=== PATIENT | female | born 1995 | race American Indian/Alaskan Native ===

== ENCOUNTER 2020-08-10 22:23 | Emergency (ER) | payer SELFPAY ==
[2020-08-11] MEDS ORDERED: IBUPROFEN 600 MG TAB PO ONE ×2 (00:03→03:30)
[2020-08-11] MEDS ORDERED: ACETAMINOPHEN 500 MG TAB PO ONE ×2 (00:03→03:30)
[2020-08-11] MEDS ORDERED: SODIUM CHLORIDE 0.9% 1000 ML 1,000 ML IV ONE ×2 (00:04→03:30)
[2020-08-11 00:38] LABS: Basophils % (Auto) 0.8 % (0.0-1.8); Eosinophils # (Auto) 0.1 K/mm3 (0.0-0.4); Eosinophils % (Auto) 2.3 % (0.0-4.3); Hematocrit 39.5 % (30.3-42.9); Lymphocytes # (Auto) 2.5 K/mm3 (1.2-5.4); Lymphocytes % (Auto) 43.7 % (13.4-35.0); Mean Corpuscular HGB Conc 33 % (30-34); Mean Corpuscular Volume 85 fl (79-97); Monocytes # (Auto) 0.4 K/mm3 (0.0-0.8); Monocytes % (Auto) 6.8 % (0.0-7.3); Platelet Count 195 K/mm3 (140-440); Red Blood Count 4.62 M/mm3 (3.65-5.03); Red Cell Distribution Width 13.7 % (13.2-15.2)
--- NOTE | 2020-08-11 00:39 | XRay Report ---
CHEST 1 VIEW 08/11/2020 12:22 AM INDICATION / CLINICAL INFORMATION: Cough and fever for 3 days. Headache for one week. COMPARISON: None available. FINDINGS: SUPPORT DEVICES: None. HEART / MEDIASTINUM: The heart size and pulmonary vasculature are normal. LUNGS / PLEURA: No significant pulmonary or pleural abnormality. No pneumothorax. ADDITIONAL FINDINGS: No significant additional findings. IMPRESSION: No acute findings. There is no evidence of pneumonia. Signer Name: Petey Gabriel MD Signed: 08/11/2020 12:34 AM Workstation Name: [id number]
[2020-08-11 02:15] LABS: Albumin 4.2 g/dL (3.9-5); Calcium 9.4 mg/dL (8.4-10.2)
--- NOTE | 2020-08-11 06:54 | Emergency Department Report ---
ED General Adult HPI - General Chief complaint: Headache Stated complaint: HEADACHE/FEVER Source: patient Mode of arrival: Ambulatory Limitations: No Limitations - History of Present Illness Initial comments: Patient is a A1 25-year-old -Gren[place] female with no past medical history presents to the ED with complaint of acute onset persistent diffuse body aches and pains, frontal and sinus pressure and headache and sore throat for the last 1 week. Patient also states that she developed persistent fever, chills and lack of appetite with generalized weakness for the last 2 days. Patient states that she has been taking ukfy-ofk-[id number] medications with no relief. Patient states that no one else at home is had similar symptoms. Patient denies dizziness, syncope, chest pain or shortness of breath, nausea and vomiting, abdominal pain, diarrhea, change in vision, vaginal bleeding, dysuria, urinary frequency and urgency or vaginal discharge. MD Complaint: Frontal sinus headache; diffuse body aches and pain; fever and chills; -: Sudden, week(s) (1) Location: head, face, back Radiation: non-radiation Severity scale (0 -10): 7 Quality: aching, sharp Consistency: constant Improves with: none Worsens with: none Associated Symptoms: denies other symptoms, cough, fever/chills, headaches, loss of appetite, malaise. denies: confusion, chest pain, diaphoresis, nausea/vomiting, rash, seizure, shortness of breath, syncope, weakness Treatments Prior to Arrival: none - Related Data Home Medications Medication Instructions Recorded Confirmed Last Taken metroNIDAZOLE [Flagyl] 500 mg PO BID 03/03/13 03/03/13 03/02/13 21:00 Previous Rx's Medication Instructions Recorded Last Taken Type Nitrofurantoin [place]/M-Cryst 100 mg PO Q12HR #20 capsule 03/03/13 Unknown Rx [Macrobid] Ondansetron [Zofran Odt] 4 mg PO Q6H PRN #12 tab.rapdis 03/03/13 Unknown Rx Acetaminophen [Tylenol] 500 mg PO Q6HR PRN #30 tablet 08/11/20 Unknown Rx Amoxicillin/Potassium Clav 1 each PO Q12H #20 tablet 08/11/20 Unknown Rx [Augmentin 875-125 Tablet] Ondansetron [Zofran Odt] 4 mg PO Q8HR PRN #15 tab.rapdis 08/11/20 Unknown Rx Allergies Allergy/AdvReac Type Severity Reaction Status Date / Time No Known Allergies Allergy Verified 08/11/20 03:23 ED Review of Systems ROS: Stated complaint: HEADACHE/FEVER Other details as noted in HPI Constitutional: chills, fever, malaise, weakness Eyes: denies: eye pain, eye discharge, vision change ENT: congestion, other (Frontal sinus pressure and headache). denies: ear pain, throat pain Respiratory: cough. denies: shortness of breath, wheezing Cardiovascular: denies: chest pain, palpitations Endocrine: no symptoms reported Gastrointestinal: denies: abdominal pain, nausea, vomiting, diarrhea Genitourinary: denies: urgency, dysuria, discharge Musculoskeletal: denies: back pain, joint swelling, arthralgia Skin: denies: rash, lesions Neurological: headache. denies: weakness, paresthesias Psychiatric: denies: anxiety, depression Hematological/Lymphatic: denies: easy bleeding, easy bruising ED Past Medical Hx - Past Medical History Previous Medical History?: No - Surgical History Past Surgical History?: No - Social History Smoking Status: Never Smoker Substance Use Type: None - Medications Home Medications: Home Medications Medication Instructions Recorded Confirmed Last Taken Type Nitrofurantoin [place]/M-Cryst 100 mg PO Q12HR #20 capsule 03/03/13 Unknown Rx [Macrobid] Ondansetron [Zofran Odt] 4 mg PO Q6H PRN #12 tab.rapdis 03/03/13 Unknown Rx metroNIDAZOLE [Flagyl] 500 mg PO BID 03/03/13 03/03/13 03/02/13 21:00 History Acetaminophen [Tylenol] 500 mg PO Q6HR PRN #30 tablet 08/11/20 Unknown Rx Amoxicillin/Potassium Clav 1 each PO Q12H #20 tablet 08/11/20 Unknown Rx [Augmentin 875-125 Tablet] Ondansetron [Zofran Odt] 4 mg PO Q8HR PRN #15 tab.rapdis 08/11/20 Unknown Rx ED Physical Exam - General Limitations: No Limitations General appearance: alert, in no apparent distress - Head Head exam: Present: atraumatic, normocephalic, normal inspection - Eye Eye exam: Present: normal appearance, PERRL, EOMI Pupils: Present: normal accommodation - ENT ENT exam: Present: normal orophraynx, mucous membranes moist, TM's normal bilaterally, normal external ear exam, other (Palpable severe frontal and maxillary sinus tenderness) - Neck Neck exam: Present: normal inspection, full ROM. Absent: tenderness, lymphadenopathy - Respiratory Respiratory exam: Present: normal lung sounds bilaterally. Absent: respiratory distress, wheezes, rales, stridor, chest wall tenderness, accessory muscle use, prolonged expiratory - Cardiovascular Cardiovascular Exam: Present: normal rhythm, tachycardia, normal heart sounds. Absent: systolic murmur, diastolic murmur, rubs, gallop - GI/Abdominal GI/Abdominal exam: Present: soft, normal bowel sounds. Absent: distended, tenderness, guarding, rebound, hyperactive bowel sounds, organomegaly - Extremities Exam Extremities exam: Present: normal inspection, full ROM, normal capillary refill - Back Exam Back exam: Present: normal inspection, full ROM. Absent: tenderness, CVA tenderness (R), CVA tenderness (L), muscle spasm, paraspinal tenderness, vertebral tenderness - Neurological Exam Neurological exam: Present: alert, oriented X3, CN II-XII intact, normal gait, reflexes normal - Psychiatric Psychiatric exam: Present: normal affect, normal mood - Skin Skin exam: Present: warm, dry, intact, normal color. Absent: rash ED Course Vital Signs 08/10/20 23:55 Temperature 101.7 F H Pulse Rate 120 H Respiratory 16 Rate Blood Pressure 148/84 O2 Sat by Pulse 99 Oximetry ED Medical Decision Making - Lab Data Result diagrams: 08/11/20 00:12 08/11/20 00:12 - Radiology Data Radiology results: report reviewed, image reviewed [facility] [address] [place] [address] XRay Report Signed Patient: MAYRA IBARRA MR#: [id number] 55 : 1995 Acct:[id number] Age/Sex: 25 / F ADM Date: 08/10/20 Loc: ED Attending Dr: Ordering Physician: OMR ZHU Date of Service: 08/11/20 Procedure(s): XR chest 1V ap Accession Number(s): [id number] cc: MOR ZHU Fluoro Time In Minutes: CHEST 1 VIEW 08/11/2020 12:22 AM INDICATION / CLINICAL INFORMATION: Cough and fever for 3 days. Headache for one week. COMPARISON: None available. FINDINGS: SUPPORT DEVICES: None. HEART / MEDIASTINUM: The heart size and pulmonary vasculature are normal. LUNGS / PLEURA: No significant pulmonary or pleural abnormality. No pneumothorax. ADDITIONAL FINDINGS: No significant additional findings. IMPRESSION: No acute findings. There is no evidence of pneumonia. Signer Name: Petey Gabriel MD Signed: 08/11/2020 12:34 AM Workstation Name: [id number] Transcribed By: RT Dictated By: Petey Gabriel MD Electronically Authenticated By: Petey Gabriel MD Signed Date/Time: 08/11/2033 DD/ TD/TT: - Medical Decision Making This is a A1 25-year-old -[place] female with no past medical history presents to the ED with complaint of acute onset persistent diffuse body aches and pains, frontal and sinus pressure and headache and sore throat for the last 1 week. Patient also states that she developed persistent fever, chills and lack of appetite with generalized weakness for the last 2 days. Patient states that she has been taking jyvy-xyc-sogumxl medications with no relief. Patient states that no one else at home is had similar symptoms. In the ED, patient is alert and oriented x3 and is not in any distress but febrile and tach ycardic in triage. Patient was treated for fever in the ED and chest x-ray showed no acute cardiopulmonary abnormalities or pneumonitis. Lab test results were reviewed and are all nonactionable except for slightly elevated creatinine of 1.3. - Differential Diagnosis Strep pharyngitis; sinusitis; URI; pneumonia; COVID-19; UTI Critical care attestation.: If time is entered above; I have spent that time in minutes in the direct care of this critically ill patient, excluding procedure time. ED Disposition Clinical Impression: Acute non-recurrent frontal sinusitis, Fever and chills, Flu-like symptoms Disposition: DC-01 TO HOME OR SELFCARE Is pt being admited?: No Does the pt Need Aspirin: No Condition: Stable Instructions: Sinusitis, Adult, Ucpc-[id number], Upper Respiratory Infection, Adult, Kcsu-[id number], Fever, Adult, Akrq-xn-Cmbx Additional Instructions: All lab test results were reviewed and are all nonactionable except for slightly elevated creatinine of 1.3, consistent with dehydration. Chest x-ray showed no acute cardiopulmonary abnormalities or pneumonitis. Therefore your symptoms are likely due to upper respiratory infection, sinusitis, or a viral syndrome. Therefore take medications with food, drink plenty of fluids and follow-up with your primary care physician in 5 to 7 days for reevaluation. Return to the ED immediately if symptoms get worse. Prescriptions: Acetaminophen [Tylenol] 500 mg PO Q6HR PRN #30 tablet PRN Reason: Fever >101 Amoxicillin/Potassium Clav [Augmentin 875-125 Tablet] 1 each PO Q12H #20 tablet Ondansetron [Zofran Odt] 4 mg PO Q8HR PRN #15 tab.rapdis PRN Reason: Nausea Referrals: [facility] [Provider Group] - 7-10 days Time of Disposition: 06:57 Print Language: ROMANIAN
[2020-08-11 07:25] LABS: Bilirubin,Urine NEG (Negative); Blood,Urine NEG (Negative); Color,Urine Yellow (Yellow); Mucus,Urine FEW /HPF; Protein,Urine <15 mg/dL mg/dL (Negative); RBC,Urine < 1.0 /HPF (0.0-6.0); Urobilinogen,Urine < 2.0 mg/dL (<2.0); WBC,Urine < 1.0 /HPF (0.0-6.0)
[2020-08-11 08:16] VITALS: BP 134/68
== END 2020-08-11 08:15 | disposition home or self-care (01) ==
LOC: ED 22:23
DX: J01.10 Acute frontal sinusitis, unspecified (principal); R50.9 Fever, unspecified; Z79.899 Other long term (current) drug therapy
CPT/HCPCS: 36415; 71045; 80053; 81001; 84703; 85025; 96360; 99284; J7030

== ENCOUNTER 2020-08-18 08:49 | Emergency (ER) | payer OTHER ==
[2020-08-18 09:04] VITALS: BP 136/74
--- NOTE | 2020-08-18 09:08 | Emergency Department Report ---
ED General Adult HPI - General Chief complaint: Allergic Reaction Stated complaint: ALLERGIC REACTION Time Seen by Provider: 08/18/20 08:58 Source: patient Mode of arrival: Ambulatory Limitations: No Limitations - History of Present Illness Initial comments: 25-year-old -[place] female patient presents with complaints of itchy rash to the legs and arms and back starting yesterday. She denies any pain, fever/chills/sweats, recent hotel stays, or contact with others with the same symptoms. She tried Benadryl this morning, however it did not help with her symptoms. No recent changes in her products per patient. She does report drinking a new TV 1 hour prior to the start of the rash. Patient also denies any dysphagia, chest pain, or shortness of breath. No other past medical history per patient. - Related Data Home Medications Medication Instructions Recorded Confirmed Last Taken metroNIDAZOLE [Flagyl] 500 mg PO BID 03/03/13 03/03/13 03/02/13 21:00 Previous Rx's Medication Instructions Recorded Last Taken Type Nitrofurantoin [place]/M-Cryst 100 mg PO Q12HR #20 capsule 03/03/13 Unknown Rx [Macrobid] Ondansetron [Zofran Odt] 4 mg PO Q6H PRN #12 tab.rapdis 03/03/13 Unknown Rx Acetaminophen [Tylenol] 500 mg PO Q6HR PRN #30 tablet 08/11/20 Unknown Rx Amoxicillin/Potassium Clav 1 each PO Q12H #20 tablet 08/11/20 Unknown Rx [Augmentin 875-125 Tablet] Ondansetron [Zofran Odt] 4 mg PO Q8HR PRN #15 tab.rapdis 08/11/20 Unknown Rx Loratadine 10 mg PO QDAY 7 Days #7 tablet 08/18/20 Unknown Rx Triamcinolone Acetonide 60 ml TP TID PRN 7 Days #1 lotion 08/18/20 Unknown Rx [Triamcinolone 0.1% LOTION] predniSONE [Deltasone] 20 mg PO TID 3 Days #9 tab 08/18/20 Unknown Rx Allergies Allergy/AdvReac Type Severity Reaction Status Date / Time No Known Allergies Allergy Verified 08/18/20 08:59 ED Review of Systems ROS: Stated complaint: ALLERGIC REACTION Other details as noted in HPI Constitutional: denies: chills, diaphoresis, fever, malaise, weakness ENT: as per HPI Skin: as per HPI Hematological/Lymphatic: denies: swollen glands ED Past Medical Hx - Past Medical History Previous Medical History?: No - Surgical History Past Surgical History?: No - Social History Smoking Status: Never Smoker Substance Use Type: None - Medications Home Medications: Home Medications Medication Instructions Recorded Confirmed Last Taken Type Nitrofurantoin [place]/M-Cryst 100 mg PO Q12HR #20 capsule 03/03/13 Unknown Rx [Macrobid] Ondansetron [Zofran Odt] 4 mg PO Q6H PRN #12 tab.rapdis 03/03/13 Unknown Rx metroNIDAZOLE [Flagyl] 500 mg PO BID 03/03/13 03/03/13 03/02/13 21:00 History Acetaminophen [Tylenol] 500 mg PO Q6HR PRN #30 tablet 08/11/20 Unknown Rx Amoxicillin/Potassium Clav 1 each PO Q12H #20 tablet 08/11/20 Unknown Rx [Augmentin 875-125 Tablet] Ondansetron [Zofran Odt] 4 mg PO Q8HR PRN #15 tab.rapdis 08/11/20 Unknown Rx Loratadine 10 mg PO QDAY 7 Days #7 tablet 08/18/20 Unknown Rx Triamcinolone Acetonide 60 ml TP TID PRN 7 Days #1 lotion 08/18/20 Unknown Rx [Triamcinolone 0.1% LOTION] predniSONE [Deltasone] 20 mg PO TID 3 Days #9 tab 08/18/20 Unknown Rx ED Physical Exam - General Limitations: No Limitations General appearance: alert, in no apparent distress, obese - Head Head exam: Present: atraumatic, normocephalic - Eye Eye exam: Present: normal appearance. Absent: scleral icterus - Respiratory Respiratory exam: Present: normal lung sounds bilaterally. Absent: respiratory distress - Cardiovascular Cardiovascular Exam: Present: regular rate, normal rhythm - Neurological Exam Neurological exam: Present: alert, oriented X3, normal gait - Psychiatric Psychiatric exam: Present: normal affect, normal mood - Skin Skin exam: Present: warm, dry, intact, normal color, rash (Scattered papular rash noted to the back, bilateral upper arms, and lower legs without significant erythema and no tenderness to palpation; no drainage noted) ED Course Vital Signs 08/18/20 08:59 Temperature 98.7 F Pulse Rate 98 H Respiratory 16 Rate Blood Pressure 136/74 O2 Sat by Pulse 100 Oximetry ED Medical Decision Making - Medical Decision Making 25-year-old -[place] female patient presents with complaints of itchy rash to the legs and arms and back starting yesterday. She denies any pain, fever/chills/sweats, recent hotel stays, or contact with others with the same symptoms. She tried Benadryl this morning, however it did not help with her symptoms. No recent changes in her products per patient. She does report drinking a new TV 1 hour prior to the start of the rash. Patient also denies any dysphagia, chest pain, or shortness of breath. No other past medical history per patient. We will treat for allergic dermatitis with antihistamines, triamcinolone, and prednisone. Recommend follow-up primary care in 3 to 5 days. Discussed signs and symptoms that should prompt immediate return to the emergency department in detail with patient who verbalizes understanding. She is well-appearing, her vitals are within normal limits, she is stable for discharge home. Critical care attestation.: If time is entered above; I have spent that time in minutes in the direct care of this critically ill patient, excluding procedure time. ED Disposition Clinical Impression: Rash and nonspecific skin eruption Disposition: DC-01 TO HOME OR SELFCARE Is pt being admited?: No Condition: Stable Instructions: Hives, Contact Dermatitis Prescriptions: predniSONE [Deltasone] 20 mg PO TID 3 Days #9 tab Loratadine 10 mg PO QDAY 7 Days #7 tablet Triamcinolone Acetonide [Triamcinolone 0.1% LOTION] 60 ml TP TID PRN 7 Days #1 lotion PRN Reason: Itching Referrals: [facility] [Provider Group] - 3-5 Days
== END 2020-08-18 09:37 | disposition home or self-care (01) ==
LOC: ED 08:49
DX: R21 Rash and other nonspecific skin eruption (principal); Z79.899 Other long term (current) drug therapy
CPT/HCPCS: 99282